=== PATIENT | female | born 1985 | race Caucasian/White ===

== ENCOUNTER → 2017-11-09 16:30 | Outpatient (CLI) | payer MEDICAID, SELFPAY ==
[2017-11-17 08:16] LABS: HPV APTIMA, High Risk Positive (Negative)
[2017-11-17 08:17] LABS: HPV Reflexed? YES, CHARGE PATIENT
== END ==
PROVIDERS: Family Provider Physician Assistant; PCP Physician Assistant; Visit Provider Obstetrics & Gynecology
DX: Z12.4 Encounter for screening for malignant neoplasm of cervix (principal)
CPT/HCPCS: 87624; 88175; G0145

== ENCOUNTER → 2017-12-10 16:18 | Outpatient (CLI) | payer MEDICAID, SELFPAY ==
--- NOTE | 2017-12-10 | IMM_PTH ---
PATIENT: MADDIE REY LOC: [facility] U#:[id number] AGE/SX: 40/F ROOM: RE12/10/[address]: Dr. Augustin Taveras MD : 1985 BED: DIS: SPEC #: [id number] RECD: 12/14/17 12:30 STATUS: ERWIN ALRISA #: [id number] AMY: 12/10/17 00:[address]: Augustin Taveras DEPT: IMMUNOHISTOCHEMISTRY RECD BY: Carolina Cobos Tissues: A - Uterine cervix, NOS Procedures: p16 (initial) KI-67 (add) PHYSICIAN & INSTITUTION [place] [address] SPECIMEN INFORMATION: Tissue Source: A ? Cervix at 6 o?clock, biopsy Clinical Info: ASCUS, HPV positive Specimen Number: [id number] CPT code: 39935, 23550 METHODOLOGY: Deparaffinized sections of prefer/formalin-fixed tissue or PAP/DQ stained slides are incubated with monoclonal/polyclonal antibodies/oligonucleotide probes. Localization is made via biotin free immunoperoxidase method. Appropriate controls are performed and reacted as expected. Results on target cell population are indicated in the following table: RESULTS: ANTIBODY / CLONE RESULT Block A P16 (E6H4) positive, patchy, focal Ki-67 (30-9) positive, low These tests were developed and their performance characteristics determined by [facility]. They may not have been cleared or approved by the U.S. Food and Drug Administration. The FDA has determined that such clearance or approval is not necessary. INTERPRETATION: A. Cervix at 6 o?clock, biopsy: Mild squamous dysplasia, RODNEY I (LSIL). AM:naveen 12/15/17
--- NOTE | 2017-12-10 15:30 | CER_PTH ---
PATIENT: MADDIE REY LOC: [facility] U#:[id number] AGE/SX: 40/F ROOM: RE12/10/[address]: Dr. Augustin Taveras MD : 1985 BED: DIS: SPEC #: [id number] RECD: 12/13/17 16:05 STATUS: ERWIN LARISA #: [id number] AMY: 12/10/17 15:[address]: Augustin Taveras DEPT: SURGICAL PATHOLOGY RECD BY: Austin Strong Tissues: A - Uterine cervix, NOS B - Endocervical Procedures: Surgery Specimen Level IV HEADER OPERATION: Colposcopy PRE-OP DIAGNOSIS: ASCUS, HPV positive TISSUE SUBMITTED: A. 6 o?clock position, B. Endocervical MICROSCOPIC DIAGNOSIS A. 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 B. Endocervix, curettings: Strips of benign superficial endocervix. Rare squamous epithelial cells with changes suspicious for HPV cytopathic effect. AM:naveen 12/14/17 COMMENT A. Results from immunohistochemistry ([id number]) for surrogate HPV marker (p16) will be reported separately. MICROSCOPIC DESCRIPTION Slides are reviewed. GROSS DESCRIPTION A - Received in fixative is one container labeled with the patient's name and designated 6 o'clock. The specimen consists of multiple irregular fragments of light barragan soft tissue that in aggregate measure 1 x 0.3 x <0.1 cm. The specimen is totally submitted in one cassette. B - Received in fixative is one container labeled with the patient's name and designated endocervical. The specimen consists of light barragan mucoid material aggregating to 1 x 0.7 x <0.1 cm. The specimen is totally submitted in one cassette. / AM:naveen 12/13/17 TC:5 CPT: 23412 x2
== END ==
PROVIDERS: Visit Provider Obstetrics & Gynecology
DX: R87.820 Cervical low risk human papillomavirus (HPV) DNA test positive (principal)
CPT/HCPCS: 88305; 88341; 88342

== ENCOUNTER → 2020-04-25 16:13 | Outpatient (CLI) | payer MEDICAID, SELFPAY ==
[2017-02-11 22:14] VITALS: BMI 20.9
[2020-05-01 13:50] LABS: HPV APTIMA, High Risk Negative (Negative); HPV Reflexed? YES, CHARGE PATIENT
== END ==
PROVIDERS: PCP Physician Assistant; Visit Provider Obstetrics & Gynecology
DX: Z12.4 Encounter for screening for malignant neoplasm of cervix (principal)
CPT/HCPCS: 87624; 88175; G0145

== ENCOUNTER 2021-05-16 12:34 | Outpatient (CLI) | payer MEDICAID, SELFPAY ==
[2021-05-16 13:22] LABS: AST(SGOT) 20 U/L (15-37); Alanine Aminotransfer ALT/SGPT 26 U/L (13-56); Albumin, Serum 3.8 g/dL (3.2-5.0); Alkaline Phosphatase 115 U/L (45-117); Bilirubin, Direct 0.17 mg/dL (0.00-0.30); Cholesterol 201 mg/dL (200); Globulin 3.1 g/dL (2.2-4.2); High Density Lipoprotein 65 mg/dL; Protein, Total 6.9 g/dL (6.4-8.2); Triglycerides 163 mg/dL; Very Low Density Lipoprotein 33 mg/dL (5-40)
== END 2021-05-16 23:59 | disposition short-term general hospital (02) ==
LOC: PAVLAB 12:35
PROVIDERS: PCP Physician Assistant; Referring Provider Internal Medicine Cardiovascular Disease; Visit Provider Internal Medicine Cardiovascular Disease
DX: Z85.71 Personal history of Hodgkin lymphoma (principal)
CPT/HCPCS: 36415; 80061; 80076

== ENCOUNTER 2021-06-09 14:01 | Outpatient (CLI) | payer MEDICAID, SELFPAY ==
[2021-06-11 18:05] LABS: HPV Reflexed? NOT INDICATED
== END 2021-06-09 23:59 | disposition home or self-care (01) ==
LOC: LABSPEC 14:03
PROVIDERS: PCP Physician Assistant; Visit Provider Obstetrics & Gynecology
DX: Z12.4 Encounter for screening for malignant neoplasm of cervix (principal)
CPT/HCPCS: 88175; G0145

== ENCOUNTER → 2022-05-22 | Outpatient (CLI) | payer MEDICAID, SELFPAY ==
--- NOTE | 2022-05-22 07:55 | ECHODONC_ITS ---
Reason For Study: MV Insufficiency Procedure This was a 2D Doppler, Color Flow transthoracic echocardiogram. Myocardial strain analysis was performed in this exam to aid in the assessment of cardiac function. Exam performed in department. Left Ventricle Normal LV size. Left ventricular systolic function is normal. The estimated ejection fraction is 55 %. No regional wall motion abnormalities noted. Right Ventricle Normal RV size. Normal systolic function. Atria Normal left atrium. Normal right atrium. Mitral Valve Normal mitral valve. Tricuspid Valve Normal tricuspid valve. Mild tricuspid valve insufficiency. Pulmonary artery systolic pressure is 20 mmHg. Aortic Valve Normal aortic valve. Trisinus/trileaflet aortic valve. Pulmonic Valve Normal pulmonic valve. Great Vessels Normal aortic root. The pulmonary artery is normal size. Normal inferior vena cava. Pericardium/Pleural No pericardial effusion. MMode/2D Measurements & Calculations LVIDd: 3.2 cm IVSd: 0.99 cm Ao root diam: 2.3 cm LVIDs: 2.1 cm LVPWd: 0.79 cm RVDd: 2.6 cm FS: 35.3 % LAV(MOD-bp): 17.2 ml LVAd ap4: 18.0 cm2 SV(MOD-sp4): 26.6 ml LAV(MOD-bp) Indexed: 10.2 ml/m2 LVLd ap4: 5.9 cm LAV(MOD-sp2): 18.5 ml EDV(MOD-sp4): 45.0 ml LAV(MOD-sp4): 14.9 ml EDV(sp4-el): 46.7 ml LVAs ap4: 10.4 cm2 LVLs ap4: 4.8 cm ESV(MOD-sp4): 18.3 ml ESV(sp4-el): 19.0 ml EF(MOD-sp4): 59.3 % EF(sp4-el): 59.3 % SV(sp4-el): 27.7 ml LA A4 area: 8.4 cm2 LA dimension(2D): 3.4 cm RA A4 area: 7.6 cm2 Time Measurements MV dec time: 0.20 sec Doppler Measurements & Calculations MV E max sky: 86.4 cm/sec Lat Peak E' Sky: 10.5 cm/sec Med Peak E' Sky: 7.2 cm/sec MV A max sky: 72.4 cm/sec E/E' lat: 8.2 E/E' med: 11.9 MV E/A: 1.2 Ao V2 max: 97.0 cm/sec LV V1 max: 90.8 cm/sec MV dec slope: 432.5 cm/sec2 Ao max P.8 mmHg LV V1 max P.3 mmHg Ao V2 mean: 73.7 cm/sec Ao mean P.3 mmHg Ao V2 VTI: 20.8 cm PA V2 max: 83.8 cm/sec TR max sky: 203.1 cm/sec TR max P.5 mmHg ECHO/ONC Echo Complete Interpretation Summary Normal LV size. Left ventricular systolic function is normal. The estimated ejection fraction is 55 %. The global longitudinal strain is normal. The global longitudinal strain = -18. 4 % (normal). Ordering Physician: Manuelito Qureshi Referring Physician: Mariaelena Hodges Performed By: Kathryn Hardy, KAVITHA, RVT
== END | disposition home or self-care (01) ==
LOC: CVS 07:53
PROVIDERS: PCP Physician Assistant; Visit Provider Internal Medicine Cardiovascular Disease
DX: I34.0 Nonrheumatic mitral (valve) insufficiency (principal)
CPT/HCPCS: 93306; 93356

== ENCOUNTER → 2022-08-24 | Outpatient (CLI) | payer MEDICAID, SELFPAY ==
--- NOTE | 2022-08-24 13:52 | BI_ITS ---
MAMMOGRAPHY - BILATERAL SCREENING REASON FOR EXAM: Female, 37 years old. Routine annual screening examination. PERTINENT HISTORY: Mother with breast cancer. Aunt with breast cancer. TECHNIQUE: Digital bilateral breast dileep (3D mammographic acquisition) in the CC and MLO projections. 2-D mediolateral oblique (MLO) and craniocaudad (CC) views of both breasts were obtained. CAD: Full Field Digital Mammography with Computer Added Detection was performed. COMPARISON: None. Baseline examination. FINDINGS: Breast Composition: The breasts are almost entirely fatty. There are no dominant masses or suspicious calcifications. No other significant abnormalities are identified. BI/SCRN MAMM (CAD)W/DILEEP BILAT IMPRESSION: Negative screening mammogram. Yearly followup mammogram recommended. (A) ASSESSMENT CATEGORY: BIRADS Category 1: Negative. A letter regarding these results will be sent to the patient by the facility within 30 days. Approximately 10% of breast cancers are not detected by mammography. A normal mammogram should not delay biopsy of a clinically suspicious abnormality. [id number] Electronically Signed: Matthew Cruz MD at 14:56 EDT ,
== END | disposition home or self-care (01) ==
LOC: OPBI 13:51
PROVIDERS: PCP Physician Assistant; Referring Provider Student in an Organized Health Care Education/Training Program; Visit Provider Student in an Organized Health Care Education/Training Program
DX: Z12.31 Encounter for screening mammogram for malignant neoplasm of breast (principal)
CPT/HCPCS: 77063; 77067

== ENCOUNTER → 2023-07-30 | Outpatient (CLI) | payer MEDICAID, SELFPAY ==
--- NOTE | 2023-07-30 10:30 | ECHODONC_ITS ---
Reason For Study: non rheumatic mitral insuff Procedure This was a 2D Doppler, Color Flow transthoracic echocardiogram. Myocardial strain analysis was performed in this exam to aid in the assessment of cardiac function. Exam performed in department. Left Ventricle Normal LV size. Left ventricular systolic function is normal. The estimated ejection fraction is 55 %. Stage 1 diastolic dysfunction. No regional wall motion abnormalities noted. Right Ventricle Normal RV size. Normal systolic function. Atria Normal left atrium. Normal right atrium. Mitral Valve Normal mitral valve. Tricuspid Valve Normal tricuspid valve. Aortic Valve Trisinus/trileaflet aortic valve. Pulmonic Valve The pulmonic valve is not well visualized. Great Vessels Normal aortic root. The pulmonary artery is normal size. Inferior vena cava collapse with respiration. Pericardium/Pleural No pericardial effusion. MMode/2D Measurements & Calculations LVIDd: 3.3 cm IVSd: 0.69 cm Ao root diam: 2.6 cm LVIDs: 2.8 cm LVPWd: 0.95 cm RVDd: 2.6 cm FS: 14.5 % LAV(MOD-bp): 18.6 ml LVAd ap4: 21.3 cm2 SV(MOD-sp4): 29.9 ml LAV(MOD-bp) Indexed: 11.8 ml/m2 LVLd ap4: 6.6 cm LAV(MOD-sp2): 20.6 ml EDV(MOD-sp4): 56.7 ml LAV(MOD-sp4): 15.1 ml EDV(sp4-el): 58.0 ml LVAs ap4: 13.1 cm2 LVLs ap4: 5.5 cm ESV(MOD-sp4): 26.8 ml ESV(sp4-el): 26.5 ml EF(MOD-sp4): 52.8 % EF(sp4-el): 54.4 % SV(sp4-el): 31.6 ml LA A4 area: 8.4 cm2 RA A4 area: 8.5 cm2 Time Measurements MV dec time: 0.13 sec Doppler Measurements & Calculations MV E max sky: 65.1 cm/sec Med Peak E' Sky: 6.6 cm/sec MV V2 max: 73.2 cm/sec MV A max sky: 65.6 cm/sec E/E' med: 9.8 MV max P.1 mmHg MV E/A: 0.99 MV V2 mean: 55.1 cm/sec MV mean P.3 mmHg MV V2 VTI: 19.4 cm Ao V2 max: 82.8 cm/sec LV V1 max: 60.2 cm/sec MV dec slope: 510.7 cm/sec2 Ao max P.8 mmHg LV V1 max P.6 mmHg Ao V2 mean: 50.4 cm/sec LV V1 mean P.93 mmHg Ao mean P.3 mmHg LV V1 mean: 43.4 cm/sec Ao V2 VTI: 15.0 cm LV V1 VTI: 15.4 cm AV (velocity ratio): 1.0 PA V2 max: 65.3 cm/sec PA V2 mean: 47.6 cm/sec ECHO/ONC Echo Complete Interpretation Summary Normal LV size. Left ventricular systolic function is normal. The estimated ejection fraction is 55 %. Stage 1 diastolic dysfunction. The global longitudinal strain is normal. The global longitudinal strain = -18. 2 % (normal). Ordering Physician: Manuelito Qureshi Referring Physician: Manuelito Qureshi Performed By: Zulema Rojas RCS
== END | disposition home or self-care (01) ==
PROVIDERS: PCP Physician Assistant; Referring Provider Internal Medicine Cardiovascular Disease; Visit Provider Internal Medicine Cardiovascular Disease
DX: I34.0 Nonrheumatic mitral (valve) insufficiency (principal)
CPT/HCPCS: 93306; 93356

== ENCOUNTER → 2023-09-06 | Outpatient (CLI) | payer MEDICAID, SELFPAY ==
--- NOTE | 2023-09-06 15:13 | BI_ITS ---
MAMMOGRAPHY - BILATERAL SCREENING 3-D TOMOSYNTHESIS REASON FOR EXAM: Female, 38 years old. ANNUAL SCREENING PERTINENT HISTORY: No significant family history. TECHNIQUE: 2-D mammograms and 3-D Tomosynthesis of the breast (s) were performed. CAD was performed. COMPARISON: 08/24/2022 FINDINGS: The breast composition is composed of scattered fibroglandular density. Scattered benign calcifications are seen. No dense spiculated masses or suspicious microcalcifications are identified. No architectural distortion is identified. There is no skin thickening or retraction. There has been no significant change since the prior study. BI/SCRN MAMM (CAD)W/DILEEP BILAT IMPRESSION: No mammographic signs of malignancy. Routine yearly mammograms recommended. ASSESSMENT CATEGORY: BIRADS Category 1: Negative. A letter regarding these results will be sent to the patient by the facility within 30 days. FOLLOW UP RECOMMENDATION: Yearly follow up mammogram recommended. (A) Approximately 10% of breast cancers are not detected by mammography. A normal mammogram should not delay biopsy of a clinically suspicious abnormality. Electronically Signed: Miky Aquino MD at 16:09 EDT ,
== END | disposition home or self-care (01) ==
LOC: OPBI 15:13
PROVIDERS: PCP Physician Assistant; Referring Provider Internal Medicine Hematology & Oncology; Visit Provider Internal Medicine Hematology & Oncology
DX: Z12.31 Encounter for screening mammogram for malignant neoplasm of breast (principal)
CPT/HCPCS: 77063; 77067

== ENCOUNTER → 2024-02-24 | Outpatient (CLI) | payer MEDICAID, SELFPAY ==
--- NOTE | 2024-02-24 14:42 | CT_ITS ---
EXAM: CT ABDOMEN AND PELVIS WITH INTRAVENOUS CONTRAST CLINICAL INDICATION: liver lesion on CT chest ([facility] 01/31/24) TECHNIQUE: Helically acquired images were obtained of the abdomen and pelvis with intravenous contrast. This CT exam was performed using one or more of the following dose reduction techniques: automated exposure control, adjustment of the mA and/or kV according to patient size, and/or use of iterative reconstruction technique. CONTRAST: Oral and amp; IV Readi-CAT and amp; 100mL Isovue-300 COMPARISON: 01/24/2015 CT abdomen and pelvis. Reported CT chest not available for review. FINDINGS: LOWER THORAX: Anterior right pleural effusion. No cardiomegaly. ABDOMEN: LIVER: There is an intrahepatic arteriovenous shunting lesion with arterial inflow from the left internal mammary artery and apparent venous drainage into the IVC. This is associated with a amorphous area of parenchymal enhancement and surrounding hypoattenuation indicating transient perfusional abnormality. An underlying mass is not entirely excluded. Total area of abnormality measures up to approximately 3.4 cm. GALLBLADDER AND BILE DUCTS: No significant abnormality. No calcified gallstones. No gallbladder distention or wall edema. No intra- or extrahepatic biliary ductal dilation. PANCREAS: No significant abnormality. No focal cystic or solid mass. SPLEEN: No significant abnormality. Normal size without focal cystic or solid mass. ADRENALS: No significant abnormality. No nodules. KIDNEYS AND URETERS: No significant abnormality. Normal renal size and position. No hydronephrosis. STOMACH AND BOWEL: Mild colonic diverticulosis without evidence of acute diverticulitis. No stomach or bowel distention. PELVIS: APPENDIX: There is a normal appendix identified in the right lower quadrant. BLADDER: No significant abnormality. REPRODUCTIVE: Normal as visualized. No mass. ABDOMEN and PELVIS: INTRAPERITONEAL SPACE: No significant abnormality. No ascites or other fluid collection. No free air. BONES/JOINTS: Degenerative changes in the spine. No suspicious lytic or blastic abnormality. SOFT TISSUES: No significant abnormality. No discrete abdominal or pelvic wall hernia. VASCULATURE: See above. LYMPH NODES: No significant abnormality. No enlarged lymph nodes. OTHER FINDINGS: Nonspecific diaphragm elevation on the left. CT/Abdomen/Pelvis WITH Contrast IMPRESSION: 1. Intrahepatic arteriovenous fistula/shunt lesion. Underlying mass not excluded. Recommend multiphasic hepatic MRI. 2. Nonspecific diaphragm elevation on the left. Correlate for diaphragmatic paresis/paralysis. 3. Anterior right pleural effusion. Alternatively, consider pericardial cyst. 4. Mild colonic diverticulosis without evidence of acute diverticulitis. Electronically Signed: Nader Wynn DO at 9:22 EST ,
== END | disposition home or self-care (01) ==
LOC: CT 14:40
PROVIDERS: PCP Physician Assistant; Referring Provider Nurse Practitioner Family; Visit Provider Nurse Practitioner Family
DX: K76.9 Liver disease, unspecified (principal); Z85.71 Personal history of Hodgkin lymphoma
CPT/HCPCS: 74177; Q9967; A4216

== ENCOUNTER → 2024-03-08 | Outpatient (CLI) | payer MEDICAID, SELFPAY ==
[2024-03-08] VITALS (17 sets, daily range): BP systolic 113–143; BP diastolic 76–101; PULSE 76–87; RESP 13–21; TEMP 36.3; O2SAT 93–100; BMI 22.7
--- NOTE | 2024-03-08 | ASPIGT_PTH ---
PATIENT: MADDIE REY LOC: [facility] U#:[id number] AGE/SX: 39/F ROOM: RE03/08/[address]: URIEL Raymundo : 1985 BED: DIS: 03/08/2024 SPEC #: [id number] RECD: 03/08/24 11:23 STATUS: ERWIN REKyle #: [id number] AMY: 03/08/24 00:[address]: Yadira Bush NP DEPT: SURGICAL PATHOLOGY RECD BY: Richard Fenton ENTERED: 03/08/24 11:24 SP TYPE: ASP RAD OTHR DR: Dr. Margie Blandon MD Tissues: Liver, NOS Procedures: PAS with Diastase (control) FNA Specimen Adequacy Trichrome (control) Special Stain Group II Special Stain Group I PAS Stain (control) Surgery Specimen Level IV Surgery Specimen Level V Retic (control) Iron Stain (control) Imprint (control) HEADER OPERATION: CT guided liver biopsy PRE-OP DIAGNOSIS: History of lymphoma TISSUE SUBMITTED: 18 gauge x 5 cores MICROSCOPIC DIAGNOSIS Liver, CT guided core biopsy: Liver parenchymal tissue with extensive macro- and microvesicular steatosis. Negative for malignancy. See microscopic description and comment. 03/09/2024 COMMENT The specimen is evaluated at the time of biopsy by Dr. Weathers. Immediate Evaluation = Negative for malignant cells. Rare mildly atypical cells noted. Reported to NP. Rosie Spring at 11:10am. Correlation with clinical, radiologic findings and appropriate follow up are necessary. MICROSCOPIC DESCRIPTION Slides are reviewed. The specimen shows liver parenchymal tissue, negative for malignancy show preserved lobular architecture. Hepatocytes show extensive macro- and microvesicular steatosis. Lobular inflammation is not seen. Portal area shows minimal chronic inflammation. Interface inflammation is not seen. Iron stain shows absent iron. Trichrome stain does not show significant increased portal or periportal fibrosis. Reticulin stain shows normal persevered lobular architecture. PAS stain with and without diastase do not show any abnormal accumulation of protein. All stains are performed with appropriate matched controls. GROSS DESCRIPTION Received is one container labeled with the patient's name and not further designated. The specimen consists of multiple irregular fragments of barragan soft tissue that in aggregate measure 1.5 x 0.3 x 0.1 cm. The specimen is totally submitted in one cassette. Two touch imprints are prepared at the time of core biopsy. 03/08/2024 TC:5 CPT:67766,52927,38897h5
[2024-03-08 09:14] LABS: Absolute Lymphocyte Count 2.15 X10^3/uL (0.83-4.51); Absolute Neutrophil Count 4.1 X10^3/uL (2.0-7.7); Basophil# 0.08 X10^3/uL; Basophil% 1.1 % (0-1); Eosinophil# 0.14 X10^3/uL; Hematocrit 50.7 % (37-47); Hemoglobin 16.6 g/dL (12.0-15.0); Lymphocyte # 2.15 X10^3/ul (0.83-4.51); Lymphocyte % 30.8 % (19-41); Mean Corp Hgb Conc 32.7 g/dL (32-36); Mean Corpuscular Hgb 30.2 pg (27.0-32.0); Mean Corpuscular Volume 92.2 fL (81-99); Mean Platelet Vol. 9.2 fl (6.2-12.0); Monocyte# 0.53 X10^3/uL; Monocyte% 7.6 % (0-10); NRBC Flagged by Analyzer 0 % (0-5); Neutrophil # 4.05 X10^3/uL (2.7-7.7); Neutrophil % 58.2 % (47-70); Platelet Count 290 K/mm3 (150-450); RBC Distribution Width CV 13.8 % (11.6-14.6); RBC Distribution Width SD 47.1 fl (35.1-43.9)
[2024-03-08 09:25] LABS: Prothrombin Time (Protime)PT. 13.1 SECONDS (11.7-14.9)
[2024-03-08 09:26] LABS: Partial Thromboplast Time 27.7 Seconds (24.1-36.2)
[2024-03-08 09:49] LABS: ALB/GLOB Ratio 1.4 RATIO (0.9-2.4); AST(SGOT) 19 U/L (15-37); Alanine Aminotransfer ALT/SGPT 22 U/L (13-56); Albumin, Serum 4.1 g/dL (3.2-5.0); Alkaline Phosphatase 104 U/L (45-117); Anion Gap 5 (5-15); BUN 12 mg/dL (7-18); BUN/Creat Ratio 11.4 RATIO (10-20); Bilirubin, Direct 0.25 mg/dL (0.00-0.30); Calcium,Total 9.6 mg/dL (8.5-10.1); Chloride 107 mmol/L (98-107); Creatinine, Serum 1.05 mg/dL (0.55-1.02); EST Glomerular Filtration Rate 61 mL/min (>60); Est Glom Filt Rate - Afr Amer 74 mL/min (>60); Globulin 2.9 g/dL (2.2-4.2); Glucose 99 mg/dL (74-106); Potassium 4.9 mmol/L (3.5-5.1); Sodium Level 140 mmol/L (136-145)
[2024-03-08] MEDS: Midazolam 2 MG/2 ML Syringe IV ×2 (10:30→10:55)
[2024-03-08] MEDS: 0.9% Saline Lock 10 ML Syringe IV ×3 (10:32→12:06)
[2024-03-08] MEDS: fentaNYL 100 MCG/2 ML Ampul IV ×3 (10:34→10:58)
[2024-03-08] MEDS: Lidocaine 2% (20 ml mdv) 20 ML Vial INFILT (10:50)
--- NOTE | 2024-03-08 11:06 | PCM.OPRPT ---
Problems Associated Problem List Diagnoses (1) Liver lesion: (2) History of Hodgkin's lymphoma: Operative Report (Standard) Operative Information Surgery/Procedure Performed: CT-guided liver biopsy Surgeon: Bridgett Spring NP Date of Procedure: 03/08/24 Procedure Start Time: 10:30 Procedure Stop Time: 11:00 Pre-Operative Diagnosis: Liver lesion with history of Hodgkin's lymphoma Post-Operative Diagnosis: Liver lesion with history of Hodgkin's lymphoma Select all DRAINS/GRAFTS/IMPLANTS that apply: None Type of Anesthesia: IV Sedation and Local Estimated Blood Loss: 0 Specimen collected: Yes Description of specimen(s) removed: 5 cores Description of surgery: PROCEDURE: CT DIRECTED CORE LIVER BIOPSY ORDERING PROVIDER: Yadira Bush CNP INDICATION: Female, 39 years old. Liver lesion. PROVIDER: Bridgett Spring CNP CONSENT: Written informed consent was obtained having explained the risks, benefits and alternatives in detail with the patient who accepted the risks and agreed to proceed. Laboratory review and clinical assessment was performed. PRE-PROCEDURE SEDATION ASSESSMENT: Current history and physical dictated by referring provider and reviewed. No clinical changes since date of exam. Patient has a Mallampati Score of Class 2 and ASA Class of 3. PROCEDURAL SEDATION PROTOCOL: The Drugs used were: 3 mg Versed, IV, and 100 mcg Fentanyl, IV. The sedation time starting at 10:30 AM and terminated at 11 AM. The procedural sedation protocol was independently monitored by the department nurse. RADIATION DOSAGE (If Supplied By Facility): CTDIvol = 14.50 mGy, DLP = 209.15 mGycm Individualized dose optimization techniques were used for this CT. TECHNIQUE The patient was placed in a supine position. Using CT image guidance with image documentation, a suitable location in the right lobe of the liver was identified. The skin surface was prepped with chlorhexidine and draped in a sterile fashion. 2% lidocaine was used for local anesthesia. Using an anterior approach, puncture of the liver was uneventful with an 18-gauge core needle system. 5, 18-gauge core samples were obtained, and submitted in formalin to the pathologist for further assessment. The needle was removed. An occlusive sterile dressing was applied. Patient tolerated the procedure well, and returned to the holding bay for nursing monitoring. IMPRESSION: CT directed core needle biopsy of the liver, using CT image guidance with image documentation as described. Procedural Sedation protocol utilized with independent monitoring. 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
[2024-03-08] MEDS: Ketorolac 30 MG/ML Syringe 15 MG IV (12:05)
== END | disposition home or self-care (01) ==
LOC: CT 09:02
PROVIDERS: PCP Student in an Organized Health Care Education/Training Program; Referring Provider Nurse Practitioner Family; Visit Provider Nurse Practitioner Family
DX: Z01.818 Encounter for other preprocedural examination (principal); Z85.71 Personal history of Hodgkin lymphoma; K76.9 Liver disease, unspecified
CPT/HCPCS: 47000; 36415; 77012; 80053; 82248; 85025; 85610; 85730; 88172; 88305; 88307; 88312; 88313; 99156; 99157; A4216

== ENCOUNTER → 2024-09-04 | Outpatient (CLI) | payer MEDICAID, SELFPAY ==
--- NOTE | 2024-09-04 13:50 | ECHODONC_ITS ---
Reason For Study Reason For Study: CHEMOTHERAPY Procedure This was a 2D Doppler, Color Flow transthoracic echocardiogram. Myocardial strain analysis was performed in this exam to aid in the assessment of cardiac function. Exam performed in department. Left Ventricle Normal LV size. The left ventricular ejection fraction is 55 %. No regional wall motion abnormalities noted. Right Ventricle Normal RV size. Normal systolic function. Atria Normal left atrium. Normal right atrium. Mitral Valve Normal mitral valve. Tricuspid Valve Normal tricuspid valve. Aortic Valve Trisinus/trileaflet aortic valve. Pulmonic Valve Normal pulmonic valve. Great Vessels Normal aortic root. The pulmonary artery is normal size. Inferior vena cava collapse with respiration. Pericardium/Pleural No pericardial effusion. MMode/2D Measurements & Calculations LVIDd: 3.9 cm IVSd: 0.76 cm LVOT diam: 1.9 cm LVIDs: 2.0 cm LVPWd: 0.82 cm LVOT area: 2.8 cm2 RVDd: 2.3 cm FS: 48.0 % asc Aorta Diam: 2.2 cm LAV(MOD-bp): 15.2 ml LVAd ap4: 14.5 cm2 LAV(MOD-bp) Indexed: 11.9 ml/m2 LVLd ap4: 5.7 cm LAV(MOD-sp2): 16.1 ml EDV(MOD-sp4): 29.6 ml LAV(MOD-sp4): 13.5 ml EDV(sp4-el): 31.1 ml LVAs ap4: 8.3 cm2 LVLs ap4: 4.5 cm ESV(MOD-sp4): 12.7 ml ESV(sp4-el): 13.0 ml EF(MOD-sp4): 57.1 % EF(sp4-el): 58.2 % LVAd ap2: 15.5 cm2 SV(MOD-sp4): 16.9 ml SV(MOD-sp2): 16.9 ml LVLd ap2: 6.4 cm SI(MOD-sp4): 13.2 ml/m2 SI(MOD-sp2): 13.2 ml/m2 EDV(MOD-sp2): 31.1 ml EDV(sp2-el): 32.0 ml LVAs ap2: 9.3 cm2 LVLs ap2: 5.1 cm ESV(MOD-sp2): 14.2 ml ESV(sp2-el): 14.4 ml EF(MOD-sp2): 54.3 % SV(sp4-el): 18.1 ml Ao sinus diam: 2.[address] Junction: 2.1 cm LA dimension(2D): 2.8 cm LA A4 area: 7.6 cm2 RA A4 area: 3.9 cm2 TAPSE: 1.7 cm Time Measurements MV dec time: 0.16 sec Doppler Measurements & Calculations MV E max sky: 63.8 cm/sec Lat Peak E' Sky: 11.7 cm/sec Med Peak E' Sky: 10.5 cm/sec MV A max sky: 61.3 cm/sec E/E' lat: 5.4 E/E' med: 6.1 MV E/A: 1.0 MV dec slope: 405.3 cm/sec2 Ao V2 max: 80.8 cm/sec LV V1 max: 78.4 cm/sec Ao max P.6 mmHg LV V1 max P.5 mmHg Ao V2 mean: 63.0 cm/sec LV V1 mean P.4 mmHg Ao mean P.7 mmHg LV V1 mean: 55.0 cm/sec Ao V2 VTI: 14.6 cm LV V1 VTI: 14.4 cm AV (velocity ratio): 0.99 KATHERYN(I,D): 2.8 cm2 KATHERYN(V,D): 2.7 cm2 SV(LVOT): 40.5 ml PA V2 max: 71.2 cm/sec ECHO/ONC Echo Complete Interpretation Summary The left ventricular ejection fraction is 55 %. Normal LV size. The global longitudinal strain is normal. The global longitudinal strain = -18. 4 % (normal). Structurally normal valves. Ordering Physician: Manuelito Qureshi Referring Physician: Manuelito Qureshi MD Performed By: Ragini Silva RDCS
== END | disposition home or self-care (01) ==
LOC: CVS 13:50
PROVIDERS: PCP Student in an Organized Health Care Education/Training Program; Referring Provider Internal Medicine Cardiovascular Disease; Visit Provider Internal Medicine Cardiovascular Disease
DX: Z51.81 Encounter for therapeutic drug level monitoring (principal); Z79.899 Other long term (current) drug therapy
CPT/HCPCS: 93306; 93356

== ENCOUNTER → 2024-11-14 | Outpatient (CLI) | payer MEDICAID, SELFPAY ==
--- NOTE | 2024-11-14 10:38 | MRI_ITS ---
PROCEDURE: MRI ABD WITH AND W/O CONTRAST, 11/14/2024 REASON FOR EXAM: STEATOSIS OF LIVER, HYPERBILIRUBINEMIA TECHNIQUE: Multiplanar multisequence MRI abdomen was performed with and without IV contrast. IV contrast: 9 mL Clariscan COMPARISON: 02/24/2024 FINDINGS: Variable overall mild/moderate motion artifact. Note additionally that some abdominal viscera are excluded from the field of view on some sequences as the exam was optimized for evaluation of the liver. T2 fat-sat was not performed. Liver: Redemonstrated focal arterial phase hyperenhancement spanning 3.0 cm within segment Julian with subsequent slight washout, ultimately isoenhancing to surrounding parenchyma on delayed imaging without correlate on T1 or T2 noncontrast sequences, compatible with a perfusional entity. This again appears potentially related to the LEFT internal mammary artery. The additional finding in segment IV B appears to demonstrate signal loss on out of phase imaging, compatible with focal steatosis. No definite space-occupying mass is identified. Spleen: Unremarkable. Gallbladder: T1 bright layering possible sludge. Pancreas: Unremarkable. Adrenals: Grossly unremarkable. Kidneys: 0.9 x 0.9 cm T1 bright mostly nonenhancing lesion at the RIGHT lower pole, which appears to demonstrate a thin but enhancing internal septation measuring 2 mm in thickness on subtraction images. Bowel: Not well evaluated by MRI; better evaluated previously. No gross bowel dilatation.. Lymph nodes: Unremarkable. Vasculature: As above.. Peritoneum: Unremarkable. Bones: Unremarkable. Other: Fluid in the anterior RIGHT chest abutting the diaphragm better delineated on CT; differential considerations unchanged. MRI/MRI Abd WITH and W/O Contrast IMPRESSION: 1. Slightly motion limited exam. 2. No true space-occupying hepatic mass is confidently identified. Similar 3.0 cm finding in segment Julian is again thought to be perfusional/vascular. This is a typical location and appearance for what is kn own as the CT/MR correlate for the nuclear medicine hot quadrate sign which has been associated with SVC obstruction/occ lusion. Recommend CT chest with contrast. 3. 0.9 cm RIGHT renal lesion compatible with a hemorrhagic/proteinaceous cyst a lthough with a thin enhancing internal septation, technically Bosniak II. 4. Additional description as above. Reading Location: [id number]
== END | disposition home or self-care (01) ==
PROVIDERS: PCP Student in an Organized Health Care Education/Training Program
DX: K21.9 Gastro-esophageal reflux disease without esophagitis (principal); K76.0 Fatty (change of) liver, not elsewhere classified; K59.00 Constipation, unspecified; E80.6 Other disorders of bilirubin metabolism
CPT/HCPCS: 74183; A9575; A4216